=== PATIENT | female | born 1955 | race Caucasian/White ===

== ENCOUNTER 2017-12-31 08:55 | Day surgery (SDC) | payer OTHER ==
[~2017-12-31 08:55] MED LIST: PROPOFOL 500 MG/50 ML EMU IV ONE
[2017-12-31 11:31] VITALS: BP 146/80; PULSE 60; RESP 20; TEMP 97.6; O2SAT 99
== END 2017-12-31 11:30 | disposition home or self-care (01) | DRG 951 ==
LOC: SURG 08:55
PROVIDERS: ATTEND Surgery
DX: Z12.11 Encounter for screening for malignant neoplasm of colon (principal); K57.32 Diverticulitis of large intestine without perforation or abscess without bleeding; Z80.0 Family history of malignant neoplasm of digestive organs
CPT/HCPCS: J2704